=== PATIENT | female | born 1955 | race Caucasian/White ===

== ENCOUNTER 2016-11-15 06:35 | Inpatient (IN) | payer BC ==
[~2016-11-15] VITALS: Ht 149.9 cm; Wt 68.5 kg
[~2016-11-15 06:35] MED LIST: NEURONTIN300 MG PO; STOOL SOFTENER100 MG PO; VITAMIN D32000 UNI1 PO
[2016-11-15 06:58] VITALS: BP 156/76
[2016-11-15 21:51] VITALS: BP 119/70
[2016-11-15 22:54] VITALS: BP 109/58
[2016-11-16] VITALS (7 sets, daily range): BP systolic 109–139; BP diastolic 57–77
[2016-11-16 09:54] LABS: EOSINOPHIL (%) 0 % (0-5); IMMATURE GRANULOCYTE (%) 0.6 % (0.0-0.7); IMMATURE GRANULOCYTE COUNT 0.1 K/uL; LYMPHOCYTE COUNT 0.5 K/uL (1.0-2.8); MCH 30.1 PG (29.0-34.0); MCHC 33.3 G/DL (30.0-36.0); MCV 90.2 FL (83-99); MEAN PLAT.VOLUME 10.3 uM^3 (9.5-12.4); MONOCYTE (%) 5.1 % (3-12); MONOCYTE COUNT 0.5 K/uL (0-0.8); NEUTROPHIL (%) 88.5 % (45-76); PLATELET COUNT 109 K/uL (156-360); RBC DIS.WIDTH-CV 12.6 % (11.8-14.6); RBC DIS.WIDTH-SD 41.3 % (39-53); RED BLOOD COUNT 3.99 M/uL (3.80-5.20)
[2016-11-16 10:11] LABS: ANION GAP 7 MEQ/L (2-14); CHLORIDE 103 MEQ/L (99-109); POTASSIUM 3.7 MEQ/L (3.7-5.4); SAMPLE HEMOLYSIS CHECK 0; SAMPLE ICTERIC CHECK 0; SAMPLE LIPEMIA CHECK 0; SODIUM 140 MEQ/L (136-147); TOTAL BILIRUBIN 0.8 MG/DL (0.0-1.0)
[2016-11-16 10:17] LABS: ALKALINE PHOSPHATASE 37 IU/L (3-129); GFR ESTIMATE (CALCULATED) > 59 mL/min/; GLUCOSE 105 mg/dL (70-99); UREA NITROGEN (BUN) 9 mg/dL (9-23)
[2016-11-17 03:44] VITALS: BP 126/77
[2016-11-17 06:55] VITALS: BP 125/81
[2016-11-17 15:50] VITALS: BP 119/72
[2016-11-17 18:49] VITALS: BP 137/80
[2016-11-17 22:40] VITALS: BP 138/73
[2016-11-18 03:38] VITALS: BP 143/85
[2016-11-18 06:49] VITALS: BP 136/81
[2016-11-18 10:38] VITALS: BP 160/77
[2016-11-18 15:18] VITALS: BP 125/66
[2016-11-18 19:01] VITALS: BP 133/75
[2016-11-18 22:27] VITALS: BP 136/76
[2016-11-19 11:19] VITALS: BP 135/85
[2016-11-19 15:30] VITALS: BP 134/81
[2016-11-19 23:49] VITALS: BP 159/96
[2016-11-20 03:48] VITALS: BP 147/88
[2016-11-20 07:08] VITALS: BP 134/86
[2016-11-20 12:19] VITALS: BP 144/73
[2016-11-20 12:47] LABS: EOSINOPHIL (%) 0.1 % (0-5); HEMATOCRIT 35.5 % (36.0-46.0); IMMATURE GRANULOCYTE (%) 0.5 % (0.0-0.7); INSTRUMENT ABS NEUTROPHIL CT 7.4 K/uL; LYMPHOCYTE COUNT 0.5 K/uL (1.0-2.8); MCH 29.6 PG (29.0-34.0); MCHC 32.7 G/DL (30.0-36.0); MCV 90.6 FL (83-99); MEAN PLAT.VOLUME 10.2 uM^3 (9.5-12.4); MONOCYTE (%) 6.8 % (3-12); MONOCYTE COUNT 0.6 K/uL (0-0.8); NEUTROPHIL (%) 86.4 % (45-76); NEUTROPHIL COUNT 7.4 K/uL (1.8-6.4); RBC DIS.WIDTH-CV 12.9 % (11.8-14.6); RBC DIS.WIDTH-SD 41.8 % (39-53); RED BLOOD COUNT 3.92 M/uL (3.80-5.20); WHITE BLOOD COUNT 8.6 K/uL (4.1-10.2)
[2016-11-20 12:48] LABS: PLATELET COUNT 176 K/uL (156-360)
[2016-11-20 13:12] LABS: ALKALINE PHOSPHATASE 38 IU/L (3-129); ANION GAP 7 MEQ/L (2-14); CHLORIDE 103 MEQ/L (99-109); GFR ESTIMATE (CALCULATED) > 59 mL/min/; GLUCOSE 96 mg/dL (70-99); MAGNESIUM 1.8 mg/dl (1.3-2.7); POTASSIUM 3.6 MEQ/L (3.7-5.4); SAMPLE HEMOLYSIS CHECK 0; SAMPLE ICTERIC CHECK 0; SAMPLE LIPEMIA CHECK 0; SODIUM 142 MEQ/L (136-147); UREA NITROGEN (BUN) 10 mg/dL (9-23)
[2016-11-20 13:13] LABS: TOTAL BILIRUBIN 0.5 MG/DL (0.0-1.0)
[2016-11-20 15:30] VITALS: BP 148/84
[2016-11-20 23:42] VITALS: BP 134/73
[2016-11-21 07:38] VITALS: BP 139/80
[2016-11-21 17:12] VITALS: BP 106/64
[2016-11-21 23:10] VITALS: BP 94/65
[2016-11-22 09:54] VITALS: BP 101/65
[2016-11-22 17:17] VITALS: BP 98/63
[2016-11-22 23:10] VITALS: BP 114/63
[2016-11-23 07:46] LABS: HEMATOCRIT 35.1 % (36.0-46.0); MCH 29.8 PG (29.0-34.0); MCV 90.2 FL (83-99); MEAN PLAT.VOLUME 10.4 uM^3 (9.5-12.4); PLATELET COUNT 212 K/uL (156-360); RBC DIS.WIDTH-CV 13.1 % (11.8-14.6); RBC DIS.WIDTH-SD 43.1 % (39-53); RED BLOOD COUNT 3.89 M/uL (3.80-5.20)
[2016-11-23 07:47] LABS: WHITE BLOOD COUNT 11.8 K/uL (4.1-10.2)
[2016-11-23 09:01] LABS: ANION GAP 6 MEQ/L (2-14); CHLORIDE 100 MEQ/L (99-109); GFR ESTIMATE (CALCULATED) > 59 mL/min/; GLUCOSE 107 mg/dL (70-99); SAMPLE HEMOLYSIS CHECK 0; SAMPLE ICTERIC CHECK 0; SAMPLE LIPEMIA CHECK 0; UREA NITROGEN (BUN) 13 mg/dL (9-23)
[2016-11-23 09:03] LABS: POTASSIUM 4.4 MEQ/L (3.7-5.4); SODIUM 132 MEQ/L (136-147)
[2016-11-23 10:26] VITALS: BP 105/62
[2016-11-23 14:22] VITALS: BP 106/62
[2016-11-23 22:34] VITALS: BP 103/58
[2016-11-24 08:55] VITALS: BP 110/69
[2016-11-24 08:57] LABS: HEMATOCRIT 31.1 % (36.0-46.0); MCHC 33.1 G/DL (30.0-36.0); MCV 90.7 FL (83-99); MEAN PLAT.VOLUME 9.6 uM^3 (9.5-12.4); PLATELET COUNT 180 K/uL (156-360); RBC DIS.WIDTH-CV 13.2 % (11.8-14.6); RBC DIS.WIDTH-SD 43.7 % (39-53); RED BLOOD COUNT 3.43 M/uL (3.80-5.20); WHITE BLOOD COUNT 10.1 K/uL (4.1-10.2)
[2016-11-24 16:15] VITALS: BP 111/72
[2016-11-24 22:50] VITALS: BP 105/62
[2016-11-25 09:19] VITALS: BP 111/71
[2016-11-25 11:17] LABS: HEMATOCRIT 29.2 % (36.0-46.0); MCH 29.7 PG (29.0-34.0); MCHC 32.2 G/DL (30.0-36.0); MCV 92.1 FL (83-99); MEAN PLAT.VOLUME 9.7 uM^3 (9.5-12.4); PLATELET COUNT 205 K/uL (156-360); RBC DIS.WIDTH-CV 13.2 % (11.8-14.6); RBC DIS.WIDTH-SD 44.7 % (39-53); RED BLOOD COUNT 3.17 M/uL (3.80-5.20); WHITE BLOOD COUNT 8.3 K/uL (4.1-10.2)
[2016-11-25 11:52] LABS: ANION GAP 4 MEQ/L (2-14); CHLORIDE 102 MEQ/L (99-109); GFR ESTIMATE (CALCULATED) > 59 mL/min/; GLUCOSE 112 mg/dL (70-99); MAGNESIUM 1.7 mg/dl (1.3-2.7); POTASSIUM 4.1 MEQ/L (3.7-5.4); SAMPLE HEMOLYSIS CHECK 0; SAMPLE ICTERIC CHECK 0; SAMPLE LIPEMIA CHECK 0; SODIUM 135 MEQ/L (136-147); UREA NITROGEN (BUN) 5 mg/dL (9-23)
[2016-11-25 11:55] LABS: EOSINOPHIL (%) 0.8 % (0-5); EOSINOPHIL COUNT 0.1 K/uL (0-0.3); IMMATURE GRANULOCYTE COUNT 0.1 K/uL; INSTRUMENT ABS NEUTROPHIL CT 6.2 K/uL; LYMPHOCYTE COUNT 0.7 K/uL (1.0-2.8); MONOCYTE (%) 15.8 % (3-12); MONOCYTE COUNT 1.3 K/uL (0-0.8); NEUTROPHIL (%) 74.1 % (45-76); NEUTROPHIL COUNT 6.2 K/uL (1.8-6.4)
[2016-11-25 16:39] VITALS: BP 103/66
[2016-11-25 22:47] VITALS: BP 108/71
[2016-11-26 07:14] VITALS: BP 106/71
[2016-11-26 08:04] LABS: INTER. NORMALIZED RATIO 1.2; PTT 35.2 (25-32)
[2016-11-26 22:33] VITALS: BP 119/75
[2016-11-27 07:35] VITALS: BP 114/60
[2016-11-27] MEDS ORDERED: NORCO 5/3251 TABLET PO (10:40)
[2016-11-27] MEDS ORDERED: CIPRO500 MG PO (10:40)
== END 2016-11-27 14:15 | disposition home or self-care (01) | DRG 330 ==
LOC: SDC 06:35 → 5EAST 17:55 → 2SOUTH 17:55 → 5EAST 21:23
PROVIDERS: Physician Assistant Surgical; Radiology Diagnostic Radiology; Surgery
DX: K43.0 Incisional hernia with obstruction, without gangrene (principal); K91.71 Accidental puncture and laceration of a digestive system organ or structure during a digestive system procedure; Y65.8 Other specified misadventures during surgical and medical care; K91.872 Postprocedural seroma of a digestive system organ or structure following a digestive system procedure; Y83.8 Other surgical procedures as the cause of abnormal reaction of the patient, or of later complication, without mention of misadventure at the time of the procedure; L03.311 Cellulitis of abdominal wall; B95.2 Enterococcus as the cause of diseases classified elsewhere; D21.4 Benign neoplasm of connective and other soft tissue of abdomen; K66.0 Peritoneal adhesions (postprocedural) (postinfection); I10 Essential (primary) hypertension; Z85.038 Personal history of other malignant neoplasm of large intestine; Z92.21 Personal history of antineoplastic chemotherapy; Z90.49 Acquired absence of other specified parts of digestive tract
CPT/HCPCS: 10030; 71020; 74020; 80048; 80053; 82948; 83735; 84100; 85025; 85027; 85610; 85730; 87070; 87075; 87077; 87106; 87186; 87205; 88307; 94799; C1769; C9113; J0330; J0690; J1100; J1170; J1644; J2405; J2543; J2550; J2710; J3010; J7050; J7120; S0030

== ENCOUNTER 2016-12-06 14:02 | Inpatient (IN) | payer BC ==
[~2016-12-06] VITALS: Ht 149.9 cm; Wt 64.5 kg
[~2016-12-06 14:02] MED LIST changes: +CIPRO500 MG PO; +NORCO 5/3251 TABLET PO
[2016-12-06 15:21] VITALS: BP 116/71
[2016-12-06 16:16] LABS: HEMATOCRIT 32.7 % (36.0-46.0); MCH 29.3 PG (29.0-34.0); MCHC 32.1 G/DL (30.0-36.0); MCV 91.3 FL (83-99); PLATELET COUNT 365 K/uL (156-360); RBC DIS.WIDTH-CV 13.2 % (11.8-14.6); RBC DIS.WIDTH-SD 44.7 % (39-53); RED BLOOD COUNT 3.58 M/uL (3.80-5.20); WHITE BLOOD COUNT 6.3 K/uL (4.1-10.2)
[2016-12-06 22:13] VITALS: BP 114/69
[2016-12-07] VITALS (8 sets, daily range): BP systolic 109–136; BP diastolic 68–76
[2016-12-07 06:54] LABS: HEMATOCRIT 29.1 % (36.0-46.0); MCH 29.5 PG (29.0-34.0); MCHC 32.6 G/DL (30.0-36.0); MCV 90.4 FL (83-99); MEAN PLAT.VOLUME 9.1 uM^3 (9.5-12.4); PLATELET COUNT 334 K/uL (156-360); RBC DIS.WIDTH-CV 13.2 % (11.8-14.6); RBC DIS.WIDTH-SD 43.7 % (39-53); RED BLOOD COUNT 3.22 M/uL (3.80-5.20); WHITE BLOOD COUNT 6.5 K/uL (4.1-10.2)
[2016-12-07 07:21] LABS: ANION GAP 7 MEQ/L (2-14); CHLORIDE 100 MEQ/L (99-109); GFR ESTIMATE (CALCULATED) > 59 mL/min/; GLUCOSE 120 mg/dL (70-99); POTASSIUM 4.6 MEQ/L (3.7-5.4); SAMPLE HEMOLYSIS CHECK 0; SAMPLE ICTERIC CHECK 0; SAMPLE LIPEMIA CHECK 0; SODIUM 136 MEQ/L (136-147); UREA NITROGEN (BUN) 8 mg/dL (9-23)
[2016-12-08 03:12] VITALS: BP 122/74
[2016-12-08 07:23] VITALS: BP 113/72
== END 2016-12-08 14:26 | disposition home or self-care (01) | DRG 857 ==
LOC: SDC 14:02 → 2SOUTH 19:22 → 5EAST 19:22
PROVIDERS: Surgery
DX: T81.4XXA Infection following a procedure, initial encounter (principal); K63.2 Fistula of intestine; L03.311 Cellulitis of abdominal wall; L02.215 Cutaneous abscess of perineum; K91.71 Accidental puncture and laceration of a digestive system organ or structure during a digestive system procedure; I10 Essential (primary) hypertension; E66.9 Obesity, unspecified; Z68.28 Body mass index [BMI] 28.0-28.9, adult; Z80.0 Family history of malignant neoplasm of digestive organs; Z85.038 Personal history of other malignant neoplasm of large intestine; Z92.21 Personal history of antineoplastic chemotherapy; Z90.49 Acquired absence of other specified parts of digestive tract; Z08 Encounter for follow-up examination after completed treatment for malignant neoplasm
CPT/HCPCS: 80048; 85027; C1729; J3010; J7120

== ENCOUNTER 2016-12-20 14:52 | Emergency (ER) | payer BC ==
[~2016-12-20] VITALS: Ht 149.9 cm; Wt 54.1 kg
[2016-12-20 15:58] LABS: HEMATOCRIT 35.4 % (36.0-46.0); MCH 28.5 PG (29.0-34.0); MCHC 32.5 G/DL (30.0-36.0); MCV 87.8 FL (83-99); RBC DIS.WIDTH-CV 13.4 % (11.8-14.6); RBC DIS.WIDTH-SD 43.2 % (39-53); WHITE BLOOD COUNT 7.9 K/uL (4.1-10.2)
[2016-12-20 15:59] LABS: MEAN PLAT.VOLUME 9.2 uM^3 (9.5-12.4)
[2016-12-20 16:05] LABS: PLATELET COUNT 453 K/uL (156-360); RED BLOOD COUNT 4.03 M/uL (3.80-5.20)
[2016-12-20 16:09] LABS: CHLORIDE 100 mEq/L (99-109); POTASSIUM 4.6 mEq/L (3.7-5.4); SODIUM 135 mEq/L (136-147)
[2016-12-20 16:11] LABS: GLUCOSE 94 mg/dL (70-99)
[2016-12-20 16:12] LABS: ANION GAP 12 MEQ/L (2-14)
[2016-12-20 16:15] LABS: GFR ESTIMATE (CALCULATED) > 59 mL/min/
[2016-12-20 16:16] LABS: UREA NITROGEN (BUN) 19 mg/dL (9-23)
[2016-12-20 17:26] VITALS: BP 119/82
== END 2016-12-20 17:36 | disposition home or self-care (01) ==
LOC: EME 14:52
PROVIDERS: Emergency Medicine
DX: Z43.3 Encounter for attention to colostomy (principal); K92.2 Gastrointestinal hemorrhage, unspecified; Z93.3 Colostomy status; I10 Essential (primary) hypertension
CPT/HCPCS: 80048; 85027; 99281; 99284; J7030

== ENCOUNTER 2017-06-07 12:08 | Inpatient (IN) | payer BC ==
[~2017-06-07] VITALS: Ht 149.9 cm; Wt 60.2 kg
[2017-06-07 12:56] LABS: BASE EXCESS -2.2 mEq/L (-3 to +3); BICARBONATE 20.9 mEq/L (22-26); CARBOXY HGB 3.5 % (0-5); METHEMOGLOBIN 0.4 % (0-1.5); PCO2 28 mm Hg (35-45); PO2 55 mm Hg (80-100); pH 7.48 (7.35-7.45)
[2017-06-07 13:05] LABS: HEMATOCRIT 24.1 % (36.0-46.0); MCH 28.1 PG (29.0-34.0); MCHC 31.5 G/DL (30.0-36.0); MCV 89.3 FL (83-99); MEAN PLAT.VOLUME 12.2 uM^3 (9.5-12.4); RBC DIS.WIDTH-CV 14.8 % (11.8-14.6); WHITE BLOOD COUNT 3.7 K/uL (4.1-10.2)
[2017-06-07 13:11] LABS: PLATELET COUNT 117 K/uL (156-360)
[2017-06-07 13:21] LABS: CHLORIDE 105 mEq/L (99-109); SODIUM 136 mEq/L (136-147)
[2017-06-07 13:22] LABS: POTASSIUM 3.8 mEq/L (3.7-5.4)
[2017-06-07 13:24] LABS: GLUCOSE 124 mg/dL (70-99)
[2017-06-07 13:25] LABS: ANION GAP 9 MEQ/L (2-14); TROP-I INTERPRETATION NEGATIVE; TROPONIN-I < 0.01 ng/mL (0.0-0.30)
[2017-06-07 13:26] LABS: TOTAL BILIRUBIN 1.3 mg/dL (0.0-1.0)
[2017-06-07 13:27] LABS: ALKALINE PHOSPHATASE 245 IU/L (3-129); GFR ESTIMATE (CALCULATED) > 59 mL/min/
[2017-06-07 13:28] LABS: UREA NITROGEN (BUN) 33 mg/dL (9-23)
[2017-06-07 13:53] LABS: EOSINOPHIL (%) 0.3 % (0-5); IMMATURE GRANULOCYTE (%) 0.5 % (0.0-0.7); INSTRUMENT ABS NEUTROPHIL CT 3.1 K/uL; LYMPHOCYTE COUNT 0.4 K/uL (1.0-2.8); MONOCYTE (%) 4.8 % (3-12); MONOCYTE COUNT 0.2 K/uL (0-0.8); NEUTROPHIL (%) 83.7 % (45-76); NEUTROPHIL COUNT 3.1 K/uL (1.8-6.4)
[2017-06-07 14:34] LABS: COMMENTS - BLOOD GASES C+A+; FI02 21 %; SITE RR; TOTAL RESP RATE 20 resp/min
[2017-06-07 15:51] VITALS: BP 9/56; BP 92/52
[2017-06-07 16:03] VITALS: BP 89/52
[2017-06-07] MEDS ORDERED: LEVOFLOXACIN500 MG PO (18:01)
[2017-06-07] MEDS ORDERED: PANTOPRAZOLE SO40 MG PO (18:02)
[2017-06-07 18:13] VITALS: BP 00/59; BP 100/59
[2017-06-07 18:34] LABS: BASE EXCESS -7.4 mEq/L (-3 to +3); BICARBONATE 16.3 mEq/L (22-26); CARBOXY HGB 2.1 % (0-5); COMMENTS - BLOOD GASES A+C+; DEVICE NC; METHEMOGLOBIN 1.1 % (0-1.5); O2 FLOW 2 L/MIN; PCO2 27 mm Hg (35-45); PO2 88 mm Hg (80-100); SITE LR; TOTAL RESP RATE 40 resp/min; pH 7.39 (7.35-7.45)
[2017-06-07 18:37] VITALS: BP 102/60
[2017-06-07 22:35] VITALS: BP 116/66
[2017-06-08] VITALS (7 sets, daily range): BP systolic 94–125; BP diastolic 55–75
[2017-06-08 06:03] LABS: ANION GAP 7 MEQ/L (2-14); CHLORIDE 115 MEQ/L (99-109); DIRECT BILIRUBIN 0.3 mg/dL (0.0-0.3); GFR ESTIMATE (CALCULATED) > 59 mL/min/; MAGNESIUM 2.3 mg/dl (1.3-2.7); POTASSIUM 3.8 MEQ/L (3.7-5.4); SAMPLE HEMOLYSIS CHECK 0; SAMPLE ICTERIC CHECK 0; SAMPLE LIPEMIA CHECK 0; SODIUM 141 MEQ/L (136-147); TOTAL BILIRUBIN 0.7 MG/DL (0.0-1.0); TRIGLYCERIDES 132 MG/DL (Normal: <150); UREA NITROGEN (BUN) 17 mg/dL (9-23)
[2017-06-08 06:04] LABS: ALKALINE PHOSPHATASE 156 IU/L (3-129); GLUCOSE 82 mg/dL (70-99)
[2017-06-08 06:19] LABS: PREALBUMIN 8.4 mg/dL (10-40)
[2017-06-08 06:28] LABS: EOSINOPHIL (%) 2.2 % (0-5); HEMATOCRIT 23.9 % (36.0-46.0); IMMATURE GRANULOCYTE (%) 0.5 % (0.0-0.7); INSTRUMENT ABS NEUTROPHIL CT 1.2 K/uL; LYMPHOCYTE COUNT 0.5 K/uL (1.0-2.8); MCH 28.8 PG (29.0-34.0); MCHC 31.8 G/DL (30.0-36.0); MCV 90.5 FL (83-99); MEAN PLAT.VOLUME 12.4 uM^3 (9.5-12.4); MONOCYTE (%) 7.1 % (3-12); MONOCYTE COUNT 0.1 K/uL (0-0.8); NEUTROPHIL (%) 62.9 % (45-76); NEUTROPHIL COUNT 1.2 K/uL (1.8-6.4); PLATELET COUNT 87 K/uL (156-360); RBC DIS.WIDTH-CV 14.9 % (11.8-14.6); RBC DIS.WIDTH-SD 49.4 % (39-53); RED BLOOD COUNT 2.64 M/uL (3.80-5.20)
[2017-06-08 06:29] LABS: WHITE BLOOD COUNT 1.8 K/uL (4.1-10.2)
[2017-06-08 07:36] LABS: POINT-OF-CARE METER ID UU14174216
[2017-06-08 11:37] LABS: INTERNAL CONTROL VALID? YES
[2017-06-08 23:48] LABS: MCH 28.7 PG (29.0-34.0); MCV 89.6 FL (83-99); PLATELET COUNT 93 K/uL (156-360); RBC DIS.WIDTH-CV 14.8 % (11.8-14.6); RBC DIS.WIDTH-SD 48.2 % (39-53)
[2017-06-08 23:49] LABS: RED BLOOD COUNT 3.35 M/uL (3.80-5.20); WHITE BLOOD COUNT 0.7 K/uL (4.1-10.2)
[2017-06-09] VITALS (9 sets, daily range): BP systolic 92–110; BP diastolic 50–66
[2017-06-09 00:23] LABS: POTASSIUM 3.3 mEq/L (3.7-5.4); SODIUM 143 mEq/L (136-147)
[2017-06-09 00:26] LABS: ANION GAP 9 MEQ/L (2-14)
[2017-06-09 00:28] LABS: GFR ESTIMATE (CALCULATED) > 59 mL/min/
[2017-06-09 00:29] LABS: CHLORIDE 118 mEq/L (99-109); GLUCOSE 113 mg/dL (70-99)
[2017-06-09 00:31] LABS: UREA NITROGEN (BUN) 21 mg/dL (9-23)
[2017-06-09 05:08] LABS: CHLORIDE 116 mEq/L (99-109); POTASSIUM 3.2 mEq/L (3.7-5.4); SODIUM 142 mEq/L (136-147)
[2017-06-09 05:09] LABS: MAGNESIUM 1.8 mg/dL (1.3-2.7)
[2017-06-09 05:10] LABS: GLUCOSE 146 mg/dL (70-99); HEMATOCRIT 29.5 % (36.0-46.0); MCH 28.5 PG (29.0-34.0); MCHC 31.2 G/DL (30.0-36.0); MCV 91.3 FL (83-99); RBC DIS.WIDTH-CV 14.9 % (11.8-14.6); RBC DIS.WIDTH-SD 49.2 % (39-53); RED BLOOD COUNT 3.23 M/uL (3.80-5.20); WHITE BLOOD COUNT 3.2 K/uL (4.1-10.2)
[2017-06-09 05:11] LABS: ANION GAP 11 MEQ/L (2-14)
[2017-06-09 05:14] LABS: GFR ESTIMATE (CALCULATED) > 59 mL/min/
[2017-06-09 05:15] LABS: UREA NITROGEN (BUN) 26 mg/dL (9-23)
[2017-06-09 06:24] LABS: MEAN PLAT.VOLUME 12.9 uM^3 (9.5-12.4); PLATELET COUNT 104 K/uL (156-360)
[2017-06-09 07:22] LABS: ABS NEUTROPHIL COUNT 3.1; ANISOCYTOSIS 1+; BAND NEUTROPHILS 9.9 % (0-8.0); EOSINOPHIL ABS CT 0; EOSINOPHILS 1.1 % (0-5.0); INSTRUMENT ABS NEUTROPHIL CT 3.1 K/uL; LYMPHOCYTES 2.2 % (15.0-45.0); PLAT.SUFFICIENCY DECREASED; SEG.NEUTROPHILS 85.7 % (46.0-76.0); SMUDGE CELLS 17.6
[2017-06-09 09:01] LABS: IRON < 10 MCG/DL (35-150)
[2017-06-09 15:05] LABS: ANION GAP 9 MEQ/L (2-14); CHLORIDE 113 MEQ/L (99-109); SAMPLE HEMOLYSIS CHECK 0; SAMPLE ICTERIC CHECK 0; SAMPLE LIPEMIA CHECK 0; SODIUM 139 MEQ/L (136-147)
[2017-06-09 15:10] LABS: GFR ESTIMATE (CALCULATED) > 59 mL/min/; UREA NITROGEN (BUN) 25 mg/dL (9-23)
[2017-06-09 15:15] LABS: GLUCOSE 92 mg/dL (70-99)
[2017-06-09 15:17] LABS: ADD MIUA? YES; BILIRUBIN NEGATIVE; BLOOD LARGE; COLOR AMBER ((YELLOW)); GLUCOSE (STRIP) NEGATIVE; KETONES NEGATIVE; LEUKOCYTES NEGATIVE; NITRITE NEGATIVE; PROTEIN (STRIP) 30; SPECIFIC GRAVITY 1.017 (1.000-1.030); UROBILINOGEN 0.2 MG/DL (0.2-1.0)
[2017-06-09 16:05] LABS: WHITE BLOOD CELLS 0-5 /HPF (0-5)
[2017-06-09 16:06] LABS: AMORPHOUS URATES CRYSTALS 1+; BACTERIA RARE /HPF; CASTS PRESENT /LPF; COARSE GRANULAR CASTS 0-5 /LPF; CRYSTALS PRESENT; EPITHELIAL CELLS 1+ /HPF; HYALINE CASTS 0-5 /LPF; MUCUS TRACE /LPF
[2017-06-10] VITALS (10 sets, daily range): BP systolic 102–149; BP diastolic 58–80
[2017-06-10 06:03] LABS: ALKALINE PHOSPHATASE 153 IU/L (3-129); ANION GAP 9 MEQ/L (2-14); CHLORIDE 112 MEQ/L (99-109); DIRECT BILIRUBIN 0.4 mg/dL (0.0-0.3); GFR ESTIMATE (CALCULATED) > 59 mL/min/; GLUCOSE 126 mg/dL (70-99); MAGNESIUM 2.4 mg/dl (1.3-2.7); POTASSIUM 3.6 MEQ/L (3.7-5.4); SAMPLE HEMOLYSIS CHECK 0; SAMPLE ICTERIC CHECK 0; SAMPLE LIPEMIA CHECK 0; SODIUM 138 MEQ/L (136-147); TRIGLYCERIDES 134 MG/DL (Normal: <150); UREA NITROGEN (BUN) 27 mg/dL (9-23)
[2017-06-10 06:04] LABS: TOTAL BILIRUBIN 0.9 MG/DL (0.0-1.0)
[2017-06-10 06:15] LABS: HEMATOCRIT 22.9 % (36.0-46.0); MCH 29.1 PG (29.0-34.0); MCHC 32.3 G/DL (30.0-36.0); MCV 90.2 FL (83-99); RBC DIS.WIDTH-CV 15.5 % (11.8-14.6); RBC DIS.WIDTH-SD 51.3 % (39-53); WHITE BLOOD COUNT 2.7 K/uL (4.1-10.2)
[2017-06-10 06:22] LABS: RED BLOOD COUNT 2.54 M/uL (3.80-5.20)
[2017-06-10 07:00] LABS: ABS NEUTROPHIL COUNT 2.3; ANISOCYTOSIS 1+; BAND NEUTROPHILS 20.2 % (0-8.0); BURR CELLS 1+; EOSINOPHIL ABS CT 0; EOSINOPHILS 0.9 % (0-5.0); INSTRUMENT ABS NEUTROPHIL CT 2.1 K/uL; LYMPHOCYTES 14.7 % (15.0-45.0); MEAN PLAT.VOLUME 13.3 uM^3 (9.5-12.4); METAMYELOCYTES 0.9 %; MICROCYTOSIS 1+; OVALOCYTES 1+; PLAT.SUFFICIENCY DECREASED; POIKILOCYTOSIS 1+
[2017-06-10 07:10] LABS: PLATELET COUNT 71 K/uL (156-360); SEG.NEUTROPHILS 63.3 % (46.0-76.0)
[2017-06-11] VITALS (7 sets, daily range): BP systolic 89–127; BP diastolic 57–83
[2017-06-11 01:05] LABS: BASE EXCESS -0.6 mEq/L (-3 to +3); BICARBONATE 21.8 mEq/L (22-26); CARBOXY HGB 2.9 % (0-5); METHEMOGLOBIN 1.6 % (0-1.5); PCO2 28 mm Hg (35-45); PO2 50 mm Hg (80-100); SITE LR
[2017-06-11 01:06] LABS: COMMENTS - BLOOD GASES A+C+; DEVICE NC; O2 FLOW 5 L/MIN; TOTAL RESP RATE 25 resp/min
[2017-06-11 05:58] LABS: ANION GAP 12 MEQ/L (2-14); CHLORIDE 105 MEQ/L (99-109); GFR ESTIMATE (CALCULATED) > 59 mL/min/; GLUCOSE 138 mg/dL (70-99); POTASSIUM 3.7 MEQ/L (3.7-5.4); SAMPLE HEMOLYSIS CHECK 0; SAMPLE ICTERIC CHECK 0; SAMPLE LIPEMIA CHECK 0; SODIUM 139 MEQ/L (136-147); UREA NITROGEN (BUN) 27 mg/dL (9-23)
[2017-06-11 06:07] LABS: MAGNESIUM 1.9 mg/dl (1.3-2.7)
[2017-06-11 08:16] LABS: HEMATOCRIT 28.2 % (36.0-46.0); MCH 28.3 PG (29.0-34.0); MCHC 32.3 G/DL (30.0-36.0); MCV 87.9 FL (83-99); PLATELET COUNT 84 K/uL (156-360); RBC DIS.WIDTH-CV 14.9 % (11.8-14.6); RBC DIS.WIDTH-SD 47.9 % (39-53); WHITE BLOOD COUNT 2.7 K/uL (4.1-10.2)
[2017-06-11 08:21] LABS: RED BLOOD COUNT 3.21 M/uL (3.80-5.20)
[2017-06-11 21:38] LABS: HEMATOCRIT 25.5 % (36.0-46.0); MCH 29.5 PG (29.0-34.0); MCHC 33.7 G/DL (30.0-36.0); MCV 87.3 FL (83-99); PLATELET COUNT 67 K/uL (156-360); RBC DIS.WIDTH-CV 14.8 % (11.8-14.6); RBC DIS.WIDTH-SD 47.2 % (39-53); RED BLOOD COUNT 2.92 M/uL (3.80-5.20)
[2017-06-11 21:39] LABS: WHITE BLOOD COUNT 1.9 K/uL (4.1-10.2)
[2017-06-11 21:43] LABS: ANISOCYTOSIS 1+; EOSINOPHIL (%) 0.5 % (0-5); HYPOCHROMASIA 1+; IMMATURE GRANULOCYTE (%) 1.1 % (0.0-0.7); INSTRUMENT ABS NEUTROPHIL CT 1.4 K/uL; LYMPHOCYTE COUNT 0.4 K/uL (1.0-2.8); MACROCYTES 1+; MICROCYTOSIS 1+; MONOCYTE (%) 5.4 % (3-12); MONOCYTE COUNT 0.1 K/uL (0-0.8); NEUTROPHIL (%) 72.6 % (45-76); NEUTROPHIL COUNT 1.4 K/uL (1.8-6.4)
[2017-06-12] VITALS (8 sets, daily range): BP systolic 93–112; BP diastolic 50–60
[2017-06-12 06:11] LABS: ANION GAP 6 MEQ/L (2-14); CHLORIDE 106 MEQ/L (99-109); GFR ESTIMATE (CALCULATED) > 59 mL/min/; GLUCOSE 148 mg/dL (70-99); POTASSIUM 3.9 MEQ/L (3.7-5.4); SAMPLE HEMOLYSIS CHECK 0; SAMPLE ICTERIC CHECK 0; SAMPLE LIPEMIA CHECK 0; SODIUM 142 MEQ/L (136-147); UREA NITROGEN (BUN) 27 mg/dL (9-23)
[2017-06-12 06:13] LABS: MAGNESIUM 2.4 mg/dl (1.3-2.7)
[2017-06-12 16:30] LABS: METH RESISTANT S AUREUS PCR NEGATIVE (NEGATIVE)
[2017-06-12 16:48] LABS: PROBE CHECK PASS; SPECIMEN PROCESSING CONTROL PASS
[2017-06-13 03:51] VITALS: BP 103/57
[2017-06-13 05:00] LABS: HEMATOCRIT 24.3 % (36.0-46.0); MCHC 30.9 G/DL (30.0-36.0); MCV 90.7 FL (83-99); MEAN PLAT.VOLUME 13.2 uM^3 (9.5-12.4); PLATELET COUNT 60 K/uL (156-360); RBC DIS.WIDTH-CV 15.2 % (11.8-14.6); RBC DIS.WIDTH-SD 49.7 % (39-53); RED BLOOD COUNT 2.68 M/uL (3.80-5.20); WHITE BLOOD COUNT 2.2 K/uL (4.1-10.2)
[2017-06-13 05:17] LABS: CHLORIDE 109 mEq/L (99-109); POTASSIUM 4.3 mEq/L (3.7-5.4); SODIUM 136 mEq/L (136-147)
[2017-06-13 05:19] LABS: GLUCOSE 142 mg/dL (70-99)
[2017-06-13 05:21] LABS: ANION GAP 3 MEQ/L (2-14)
[2017-06-13 05:23] LABS: GFR ESTIMATE (CALCULATED) > 59 mL/min/
[2017-06-13 05:24] LABS: MAGNESIUM 2.1 mg/dL (1.3-2.7); UREA NITROGEN (BUN) 25 mg/dL (9-23)
[2017-06-13 06:05] LABS: EOSINOPHIL (%) 1.8 % (0-5); IMMATURE GRANULOCYTE (%) 0.9 % (0.0-0.7); INSTRUMENT ABS NEUTROPHIL CT 1.5 K/uL; LYMPHOCYTE COUNT 0.5 K/uL (1.0-2.8); MONOCYTE (%) 5.5 % (3-12); MONOCYTE COUNT 0.1 K/uL (0-0.8); NEUTROPHIL (%) 68.9 % (45-76); NEUTROPHIL COUNT 1.5 K/uL (1.8-6.4)
[2017-06-13 07:10] VITALS: BP 116/61
[2017-06-13 10:51] VITALS: BP 97/61
[2017-06-13 16:23] VITALS: BP 98/60
[2017-06-13 19:37] VITALS: BP 101/62
[2017-06-14] VITALS (7 sets, daily range): BP systolic 95–113; BP diastolic 52–72
[2017-06-14 06:37] LABS: POINT-OF-CARE METER ID UU14149397
[2017-06-14 06:55] LABS: ANION GAP 5 MEQ/L (2-14); CHLORIDE 106 MEQ/L (99-109); GFR ESTIMATE (CALCULATED) > 59 mL/min/; GLUCOSE 118 mg/dL (70-99); MAGNESIUM 2.1 mg/dl (1.3-2.7); POTASSIUM 4.4 MEQ/L (3.7-5.4); SAMPLE HEMOLYSIS CHECK 0; SAMPLE ICTERIC CHECK 0; SAMPLE LIPEMIA CHECK 0; SODIUM 140 MEQ/L (136-147); UREA NITROGEN (BUN) 21 mg/dL (9-23)
[2017-06-14 08:13] LABS: EOSINOPHIL (%) 2.9 % (0-5); EOSINOPHIL COUNT 0.1 K/uL (0-0.3); HEMATOCRIT 23.5 % (36.0-46.0); IMMATURE GRANULOCYTE (%) 0.8 % (0.0-0.7); INSTRUMENT ABS NEUTROPHIL CT 1.7 K/uL; LYMPHOCYTE COUNT 0.5 K/uL (1.0-2.8); MCH 28.6 PG (29.0-34.0); MCHC 31.1 G/DL (30.0-36.0); MCV 92.2 FL (83-99); MONOCYTE (%) 4.5 % (3-12); MONOCYTE COUNT 0.1 K/uL (0-0.8); NEUTROPHIL (%) 69.6 % (45-76); NEUTROPHIL COUNT 1.7 K/uL (1.8-6.4); PLATELET COUNT 77 K/uL (156-360); RBC DIS.WIDTH-CV 15.2 % (11.8-14.6); RBC DIS.WIDTH-SD 51.6 % (39-53); RED BLOOD COUNT 2.55 M/uL (3.80-5.20); WHITE BLOOD COUNT 2.4 K/uL (4.1-10.2)
[2017-06-14 11:58] LABS: POINT-OF-CARE METER ID UU14149397
[2017-06-14 21:35] LABS: POINT-OF-CARE METER ID UU14208753
[2017-06-15 03:18] VITALS: BP 95/61
[2017-06-15 06:38] LABS: POINT-OF-CARE METER ID UU14117124
[2017-06-15 07:02] LABS: ANION GAP 4 MEQ/L (2-14); CHLORIDE 106 MEQ/L (99-109); GFR ESTIMATE (CALCULATED) > 59 mL/min/; GLUCOSE 79 mg/dL (70-99); POTASSIUM 4.7 MEQ/L (3.7-5.4); SAMPLE HEMOLYSIS CHECK 0; SAMPLE ICTERIC CHECK 0; SAMPLE LIPEMIA CHECK 0; SODIUM 140 MEQ/L (136-147); UREA NITROGEN (BUN) 16 mg/dL (9-23)
[2017-06-15 09:02] VITALS: BP 114/66
[2017-06-15 09:53] LABS: POINT-OF-CARE METER ID UU14188577
[2017-06-15 14:52] VITALS: BP 123/71
[2017-06-15 19:40] VITALS: BP 121/72
[2017-06-15 23:13] VITALS: BP 110/59
[2017-06-16 03:45] VITALS: BP 123/72
[2017-06-16 07:01] VITALS: BP 115/63
[2017-06-16 07:15] LABS: ANION GAP 9 MEQ/L (2-14); CHLORIDE 105 MEQ/L (99-109); GFR ESTIMATE (CALCULATED) > 59 mL/min/; GLUCOSE 64 mg/dL (70-99); MAGNESIUM 2.1 mg/dl (1.3-2.7); POTASSIUM 4.5 MEQ/L (3.7-5.4); SAMPLE HEMOLYSIS CHECK 0; SAMPLE ICTERIC CHECK 0; SAMPLE LIPEMIA CHECK 0; SODIUM 140 MEQ/L (136-147); UREA NITROGEN (BUN) 17 mg/dL (9-23)
[2017-06-16 08:11] LABS: HEMATOCRIT 26.7 % (36.0-46.0); MCV 91.1 FL (83-99); WHITE BLOOD COUNT 2.6 K/uL (4.1-10.2)
[2017-06-16 09:03] LABS: PLATELET COUNT 124 K/uL (156-360)
[2017-06-16 15:24] VITALS: BP 143/78
[2017-06-16 20:04] VITALS: BP 120/69
[2017-06-16 23:21] VITALS: BP 110/64
[2017-06-17] VITALS (7 sets, daily range): BP systolic 119–139; BP diastolic 62–78
[2017-06-18 03:12] VITALS: BP 136/69
[2017-06-18 07:17] VITALS: BP 138/70
[2017-06-18 11:51] VITALS: BP 144/79
[2017-06-18 12:54] LABS: ANION GAP 8 MEQ/L (2-14); CHLORIDE 107 MEQ/L (99-109); GFR ESTIMATE (CALCULATED) > 59 mL/min/; POTASSIUM 4.1 MEQ/L (3.7-5.4); SAMPLE HEMOLYSIS CHECK 0; SAMPLE ICTERIC CHECK 0; SAMPLE LIPEMIA CHECK 0; SODIUM 141 MEQ/L (136-147); UREA NITROGEN (BUN) 8 mg/dL (9-23)
[2017-06-18 12:56] LABS: GLUCOSE 86 mg/dL (70-99)
[2017-06-18 15:09] VITALS: BP 144/79; BP 157/78
[2017-06-18 19:39] VITALS: BP 133/75
[2017-06-18 23:16] VITALS: BP 133/77
[2017-06-19 04:59] VITALS: BP 133/70
[2017-06-19 05:58] LABS: EOSINOPHIL (%) 2.4 % (0-5); EOSINOPHIL COUNT 0.1 K/uL (0-0.3); HEMATOCRIT 29.8 % (36.0-46.0); IMMATURE GRANULOCYTE (%) 0.6 % (0.0-0.7); INSTRUMENT ABS NEUTROPHIL CT 2.3 K/uL; LYMPHOCYTE COUNT 0.7 K/uL (1.0-2.8); MCH 29.1 PG (29.0-34.0); MCHC 31.2 G/DL (30.0-36.0); MCV 93.1 FL (83-99); MONOCYTE COUNT 0.3 K/uL (0-0.8); NEUTROPHIL (%) 66.3 % (45-76); NEUTROPHIL COUNT 2.3 K/uL (1.8-6.4); RBC DIS.WIDTH-CV 15.3 % (11.8-14.6); RBC DIS.WIDTH-SD 49.4 % (39-53); WHITE BLOOD COUNT 3.4 K/uL (4.1-10.2)
[2017-06-19 06:05] LABS: MEAN PLAT.VOLUME 10.8 uM^3 (9.5-12.4); PLATELET COUNT 225 K/uL (156-360)
[2017-06-19 06:37] LABS: ALKALINE PHOSPHATASE 196 IU/L (3-129); ANION GAP 6 MEQ/L (2-14); CHLORIDE 107 MEQ/L (99-109); DIRECT BILIRUBIN 0.2 mg/dL (0.0-0.3); GFR ESTIMATE (CALCULATED) > 59 mL/min/; POTASSIUM 3.8 MEQ/L (3.7-5.4); SAMPLE HEMOLYSIS CHECK 0; SAMPLE ICTERIC CHECK 0; SAMPLE LIPEMIA CHECK 0; SODIUM 141 MEQ/L (136-147); TOTAL BILIRUBIN 0.8 MG/DL (0.0-1.0); TRIGLYCERIDES 129 MG/DL (Normal: <150); UREA NITROGEN (BUN) 12 mg/dL (9-23)
[2017-06-19 06:38] LABS: GLUCOSE 116 mg/dL (70-99)
[2017-06-19 08:09] VITALS: BP 129/72
[2017-06-19 11:17] VITALS: BP 140/82
[2017-06-19 15:01] VITALS: BP 128/75
[2017-06-19 20:19] VITALS: BP 140/80
[2017-06-19 23:35] VITALS: BP 118/77
[2017-06-20 04:36] VITALS: BP 134/77
[2017-06-20 06:50] LABS: ANION GAP 6 MEQ/L (2-14); CHLORIDE 109 MEQ/L (99-109); GFR ESTIMATE (CALCULATED) > 59 mL/min/; GLUCOSE 109 mg/dL (70-99); MAGNESIUM 2.1 mg/dl (1.3-2.7); POTASSIUM 4.6 MEQ/L (3.7-5.4); SAMPLE HEMOLYSIS CHECK 0; SAMPLE ICTERIC CHECK 0; SAMPLE LIPEMIA CHECK 0; SODIUM 142 MEQ/L (136-147); UREA NITROGEN (BUN) 18 mg/dL (9-23)
[2017-06-20 08:25] VITALS: BP 140/77
[2017-06-20] MEDS ORDERED: NYSTATIN15 GM TP (09:39)
[2017-06-20 12:37] VITALS: BP 139/76
[2017-06-20] MEDS ORDERED: FLUCONAZOLE200 MG PO (13:16)
== END 2017-06-20 15:00 | disposition home health service (06) | DRG 853 ==
LOC: EME 12:08 → 4EAST 18:01 → EDOF 18:01 → ENRESERV 18:02 → 4EAST 22:22 → ENRESERV 06-14 01:36 → 3EAST 06-14 03:03
PROVIDERS: Emergency Medicine; Hospitalist; Internal Medicine; Internal Medicine Infectious Disease; Physician Assistant
PROC: 30233N1 Transfusion of Nonautologous Red Blood Cells into Peripheral Vein, Percutaneous Approach (ICD-10-PCS; principal; 2017-06-07)
PROC: 3E0436Z Introduction of Nutritional Substance into Central Vein, Percutaneous Approach (ICD-10-PCS; principal; 2017-06-07)
PROC: 05PY03Z Removal of Infusion Device from Upper Vein, Open Approach (ICD-10-PCS; 2017-06-15)
DX: B37.7 Candidal sepsis (principal); J15.9 Unspecified bacterial pneumonia; E43 Unspecified severe protein-calorie malnutrition; J96.01 Acute respiratory failure with hypoxia; K63.2 Fistula of intestine; D61.810 Antineoplastic chemotherapy induced pancytopenia; B36.9 Superficial mycosis, unspecified; R16.1 Splenomegaly, not elsewhere classified; D64.9 Anemia, unspecified; Z68.28 Body mass index [BMI] 28.0-28.9, adult; E87.2 Acidosis; Z90.49 Acquired absence of other specified parts of digestive tract; Z93.3 Colostomy status; Z85.038 Personal history of other malignant neoplasm of large intestine; I10 Essential (primary) hypertension; E87.70 Fluid overload, unspecified; E87.1 Hypo-osmolality and hyponatremia; J98.11 Atelectasis; C18.9 Malignant neoplasm of colon, unspecified; Z79.2 Long term (current) use of antibiotics; Z80.0 Family history of malignant neoplasm of digestive organs; T45.1X5A Adverse effect of antineoplastic and immunosuppressive drugs, initial encounter
CPT/HCPCS: 36600; 71010; 71020; 71275; 74176; 76937; 80048; 80048 91; 80053; 80076; 80202; 81003; 82248; 82607; 82746; 82803; 82948; 83540; 83605; 83735; 83880; 84100; 84134; 84443; 84466; 84478; 84484; 84540; 84630 90; 85014; 85018; 85025; 85027; 85048; 85049; 86850; 86900; 86901; 86920; 87040; 87070; 87075; 87102; 87106; 87149; 87149 59; 87186 90; 87205; 87449; 87502; 87641; 90686; 93005; 94640; 94640 76; 94760; 94799; 99202; 99281; 99285; C1753; J0295; J0456; J0692; J0696; J1450; J1644; J1756; J1885; J1940; J2250; J3010; J3370; J7030; J7050; P9016